=== PATIENT | female | born 1995 | race Caucasian/White ===

== ENCOUNTER 2022-11-14 12:30 | Outpatient (RCR) | payer OTHER, SELFPAY ==
--- NOTE | 2022-11-03 17:27 | HP.PTEVAL_ITS ---
Patient's Visit Information MARITZA GUZMAN is a 27 year old F referred to Physical Therapy by Dr. Juan Pimentel MD with a diagnosis of Bilateral Knee Pain. Date of Evaluation: 11/03/22 Physical Therapist: Emily Luis DPT - Visit Plan Frequency: 2x /Week Duration: 4 Weeks Plan: Focus on LE and Core HEP- more exercises so she can have choice ex to pick from- she returns to [facility] in 2 weeks. HEP Given IE: SLR, Clams, Prone Hip Extn, SLS - Subjective Patient reports that she went to see Dr. 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 High school she had a bad fall and it may also be contributing. She feels that the knees are getting worse. She got new shoes Dr. Pimentel suggested them. She reports that the pain has morphed into different things- she has been taking new medications. She tried a brace but it didn't really help with the pain but did make it feel more stable. Pain is located inside the knees- does radiate into her hips and back sometimes. Worst: 6-7/10 Agg: not sure comes and goes- went on a walk and going down the hills. Stress does play a role- is watching her diet. Eases: bengay makes it go away- Fish Oil. Best: 0/10. Sleep: not disturbed. Does have some N/T in her toes when she runs for more than 2 miles. She tries to swim 3x a week, stretches in the AM- does some yoga-if the weather is good then she will get out and do a run 1-2x a week. 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 Her job is on her feet as well as moving around. She does have access to a gym at home. PMHx: none Meds: none - Objective Posture: FH, RS can correct with verbal cues but does not maintain. Gait: no deviation noted. SLS: 15 sec with moderate pelvic translation. Squat: slight weight shift to the right. Observation: pes planus bilateral. ROM: WFL in all planes- increased discomfort with IR/ER. Strength: Core: fair minus, Hip: 4-/5 throughout, Knee: 4+/5 Ankle: 5/5. Flex: HS: moderate, Gastroc: moderate. Observation: Pelvic Alignment: Right ASIS higher than left- corrected with MET - Balance/Special Test Scores Lower Extremity Functional Score: 56 - Goals Goal 1:: Patient will be I with HEP and progression Goal Time Frame: 4-6 Weeks Goal 2:: Patient will SLS without hip drop for 30 sec Goal Time Frame: 4-6 Weeks - Rehabilitation Potential Physical Therapy Diagnosis: Patient presents with hypomobility- she has decreased LE and core strength/stabilization and muscular endurance leading to pelvic rotation, instability and increased pain with ADLs/recreational activities Rehabilitation Potential: Good - Anticipated Interventions Patient/Client Instruction: Educate patient on: Benefits of Fitness Program Therapeutic Exercise to Include: Strength training, Endurance training, Balance training, Coordination, Agility training, Body mechanics, Postural training, Flexibilty training, Gait and locomotor training, Neuromotor development, Dynamic Lumbar Stabilization, Scapular Strength/Stabilization Thank you for the opportunity to evaluate your patient. For Medicare and Medicare HMO plans, please review the plan of care and approve it. It will need to be FAXED BACK to us at [phone] for Medicare purposes. For Medicare only, by signing this I certify the plan of care. Please let me know if there are questions or concerns regarding this plan of care. Physician Signatu re: Date:
--- NOTE | 2022-11-14 12:56 | HP.PTDCSUM_ITS ---
It has been my pleasure to treat MARITZA GUZMAN referred by Dr. Juan Pimentel MD, with the diagnosis of Bilateral Knee Pain for a total of 6 visit(s). Discharge Date: Please see the following information for a summary of their discharge status. Subjective: She has noticed that her knees don't really a lot anymore. They don't hurt as she is just sitting- more when she is active. She has not been running or as active as she was before. She feels 70-80% improvement- she feels she needs to continue to work on her core. % Improvement: 80 Objective/Function: Posture: fair throughout. Gait: no deviation noted. SLS: 30 sec with no pelvic translation. Squat: good mechanics no weight shift. Ob servation: pes planus bilateral. ROM: WFL in all planes Strength: Core: fair minus, Hip: 4+/5 throughout, Knee: 5/5 Ankle: 5/5. Flex: HS: moderate, Gastroc: moderate. Observation: Pelvic Alignment: WFL Goal 1:: Patient will be I with HEP and progression Goal Progress: Goal Met Goal 2:: Patient will SLS without hip drop for 30 sec Goal Progress: Goal Met Plan: 11/14/21: Discharge to [facility] as she is going back to [place]. Focus on LE and Core HEP- more exercises so she can have choice ex to pick from- she returns to [facility] in 2 weeks. HEP Given IE: SLR, Clams, Prone Hip Extn, SLS If there are questions or concerns regarding this patient's physical therapy, please feel free to call me at [phone]. Thank you for the referral of this patient. Sincerely, Emily Luis, DPT Balance/Gait/Functional tests - Balance/Special Test Scores Lower Extremity Functional Score: 62
== END 2022-11-14 13:17 | disposition home or self-care (01) ==
LOC: PT 12:30
PROVIDERS: PCP Pediatrics; Referring Provider Family Medicine; Visit Provider Family Medicine
DX: M22.2X9 Patellofemoral disorders, unspecified knee (principal)
CPT/HCPCS: 97110; 97162; 97164